=== PATIENT | male | born 1960 | race Caucasian/White ===

== ENCOUNTER → 2016-11-06 | Outpatient (CLI) | payer MEDICARE ==
[~2016-11-06] MED LIST: ADVAIR DISK28 PUFFS IN; AMBIEN10 MG PO; DUONEB 3 MG/3 ML3 ML IH; HYDROCODONE/ACE1 TA5 PO; LISINOPRIL 10MG10 MG PO; LORTAB 5/500 501 TAB PO; MULTI VITAMINS1 TA1 PO; NYSTATIN SUSPEN60 ML PO; ROBAXIN-750750 MG PO; SPIRIVA HA1 PUFF/INH IH; ULTRAM50 MG PO; VOLTAREN75 MG PO; ZITHROMAX 250M250 MG PO; ZITHROMAX Z-PA250 M1 PO; Zithromax500 MG PO
--- NOTE | 2016-11-07 09:25 | RADIOLOGY REPORT PS360 ---
PROCEDURE: 2-D M-mode and color Doppler study INDICATIONS FOR THE TEST: Chest pain X COPDX Heart Murmur Tobacco SmokingX Palpitations Fatigue Syncope Edema Hypertension Diabetes Mellitus Rheumatic Fever SOBXDOEXObesity Hyperlipidemia Family History HDX Additional History PATIENT INFORMATION HEIGHT: 71 WEIGHT:198 GENDER: Male B/P:130/80 2-D/M-MODE INTERPRETATION: 2-D MEASUREMENTS OBSERVED VALUES IN CMS Right Ventricular Dimension (RVDd) 2.3 Interventricular Septum (Thickness)(IVsd) 1.0 Left Ventricular Internal Dimensions(LVIDd) 4.9 Left Ventricular Posterior Wall (Thickness)(LVPWd) 1.0 Aortic Root 3.4 Aortic Cusp Separation 1.8 Left Atrial Dimensions (LAD) 2.3 2D 1. Left atrium is normal size, left ventricle is normal size, there is no concentric left ventricular hypertrophy, visually estimated ejection fraction of 50-55% with no obvious regional wall motion abnormality, endocardial surfaces are poorly visualized. 2. The right atrium is normal size, right ventricle is mildly enlarged with normal contractility. 3. The aortic valve is minimally thickened and fibrosed. 4. The mitral and tricuspid valve leaflets are minimally thickened. 5. The pulmonic valve is poorly visualized. 6. No significant pericardial effusion noted. DOPPLER INTERROGATION: Doppler interrogation of the aortic mitral and tricuspid valve reveals presence of mild mitral and tricuspid regurgitation, tricuspid regurgitant jet velocity insufficient for calculation of the right ventricular systolic pressure, grade 1 diastolic dysfunction seen without tissue Doppler evidence of raised left atrial pressure. CONCLUSION: 1. Normal left ventricular size, preserved left ventricular systolic function, visually estimated ejection fraction of 50-55% with no obvious regional wall motion abnormality, endocardial surfaces are poorly visualized., Grade 1 diastolic dysfunction seen without tissue Doppler evidence of raised left atrial pressure. 2. Mild mitral and tricuspid regurgitation. 3. No significant pericardial effusion noted.
--- NOTE | 2016-11-07 14:51 | RADIOLOGY REPORT PS360 ---
History and Indications: Shortness of breath, tobacco use, family history. Procedure: Patient received a 0.4 mg of Lexiscan, resting heart rate was 77 bpm, resting blood pressure 150/87, with Lexiscan maximum heart rate achieved was 107 bpm which is less than 85% of the maximum predicted heart rate and a blood pressure was 173/85. With Lexiscan patient complained of chest pressure shortness of breath and stomach discomfort. Electrocardiogram: Resting electrocardiogram showed sinus rhythm, with Lexiscan there is less than 1.[address] segment depression noted from the baseline EKG. The EKG portion of the Lexiscan is nondiagnostic secondary to baseline abnormal EKG. Cardiac stress and resting SPECT images: Cardiac stress and the suspect images were obtained using technetium 99 Myoview 10.7 mCi at rest and 32.9 mCi at stress, gated SPECT further analysis of segmental wall motion and calculation of the ejection fraction also done. Cardiac stress and the suspect images show a fixed defect involving the inferior wall with normal contractility in the gated SPECT is likely secondary to soft tissue attenuation from the diaphragm, no reversible ischemia seen, computer derived ejection fraction is 64% with no obvious regional wall motion abnormality, right ventricle is mildly enlarged with normal contractility. Conclusion: 1. The EKG portion of the Lexiscan is nondiagnostic due to baseline abnormal EKG. 2. No obvious scintigraphic evidence of reversible ischemia seen, defect seen in the inferior wall with normal contractility on the gated SPECT is likely secondary to soft tissue attenuation, computer derived ejection fraction is 64% with no obvious regional wall motion abnormality, right ventricle is mildly enlarged with normal contractility.
== END ==
LOC: RAD 06:24
DX: I20.8 Other forms of angina pectoris (principal); R06.02 Shortness of breath; I10 Essential (primary) hypertension; J44.9 Chronic obstructive pulmonary disease, unspecified; G47.33 Obstructive sleep apnea (adult) (pediatric)
CPT/HCPCS: A9502; J2785